=== PATIENT | male | born 1995 | race Caucasian/White ===

== ENCOUNTER 2016-11-15 17:47 | Emergency (ER) | payer OTHER ==
[~2016-11-15] VITALS: Ht 177.8 cm; Wt 99.8 kg
[2016-11-15 17:54] VITALS: BP 150/94
[2016-11-15] MEDS ORDERED: AMOXICILLIN500 M3 PO (18:44)
--- NOTE | 2016-11-15 18:46 | ED EAR COMPLAINT ---
History of Present Illness General Chief Complaint: Ear Complaints Stated Complaint: R EAR PAIN Source: patient Exam Limitations: no limitations Vital Signs & Intake/Output Vital Signs & Intake/Output Vital Signs Date Time Temp Pulse Resp B/P Pulse O2 O2 Flow FiO2 Ox Delivery Rate 11/15 1859 98.9 88 16 11/15 1754 97.1 86 16 150/94 97 Room Air ED Intake and Output 11/16 0000 11/15 1200 Intake Total Output Total Balance Patient 220 lb Weight Triage Note: PT C/O SEVER RIGHT EAR PAIN THAT STARTED ABOUT 1400 TODAY. PT STATES HE TRIED TO CLEAN OUT HIS EAR WITH PEROXIDE BUT NOTHING HELPED. Triage Nurses Notes Reviewed? yes HPI: This patient is a 21 year old male who presented for acute onset of right ear pain today. Reported that he was not doing anything inparticular when the pain started. No trauma. No drainage. Reported 7 out of 10, sharp, constant, pain with no palliative or provoking factors. No fevers, chills, headaches, sore throat,congestion or any other associated symptoms. (LANA PAGE PA-C) Allergies Coded Allergies: sulfamethoxazole (From [facility]) (RASH 11/15/16) trimethoprim (From [facility]) (RASH 11/15/16) Reconcile Medications Amoxicillin 500 MG TABLET 1 TAB PO TID otitis media (DOMONIQUE MURRIETA,HAKEEM) Past History Travel History Traveled to [place] past 21 day No Medical History Any Pertinent Medical History? see below for history Surgical History Surgical History: non-contributory Psychosocial History What is your primary language Salvadorean Tobacco Use: Never used ETOH Use: denies use Illicit Drug Use: denies illicit drug use Family History Hx Contributory? No (LANA PAGE PA-C) Review of Systems Review of Systems Constitutional: Reports: no symptoms. EENTM: Reports: see HPI. Respiratory: Reports: no symptoms. Cardiovascular: Reports: no symptoms. GI: Reports: no symptoms. Musculoskeletal: Reports: no symptoms. Skin: Reports: no symptoms. Neurological/Psychological: Reports: no symptoms. All Other Systems: Reviewed and Negative (LANA PAGE PA-C) Physical Exam Physical Exam Ears: Right: Tympanic red, Tympanic bulging. Bilateral: canal normal. Comments: Well-developed well-nourished person in no acute distress HEENT: Head normocephalic, moist mucous membranes, no pharyngeal injection Neck: Supple, no lymphadenopathy Back: Normal gait Respiratory: No respiratory distress. Speaking in full sentences Extremities: No edema, full range of motion Neuro: Alert and oriented x3 Psych: Mood affect normal, normal memory normal judgment. Skin: Warm and dry, no rash on exposed skin (LANA PAGE PA-C) Progress Differential Diagnoses I considered the following diagnoses in my evaluation of the patient: [otitis media, otitis externa, mastoiditis, tm perforation] Plan of Care: This patient is a 21-year-old male who presented for abrupt onset of right ear pain. On clinical examination, red, bulging tympanic membrane. No evidence of perforation. Likely otitis media. The patient has no other associated symptoms. Stable for outpatient antibiotic management of his symptoms. Initial ED EKG: none (LANA PAGE PA-C) Departure Departure Disposition: HOME OR SELF CARE Condition: Stable Clinical Impression Primary Impression: Otitis media Qualifiers: Otitis media type: unspecified Laterality: right Chronicity: unspecified Qualified Code: H66.91 - Otitis media, unspecified, right ear Referrals: EMILY COHEN DO (PCP/Family) Additional Instructions: Take antibiotic as directed and for the full duration. Follow-up with your primary care physician. Return for any worsening symptoms or concerns. Departure Forms: Customer Survey General Discharge Information Prescriptions: Current Visit Scripts Amoxicillin 1 TAB PO TID #30 TAB (LANA PAGE PA-C) PA/CORN DETASSELER MACHINE OPERATOR Co-Sign Statement Statement: ED Attending supervision documentation- [] I saw and evaluated the patient. I have also reviewed all the pertinent lab results and diagnostic results. I agree with the findings and the plan of care as documented in the PA's/CORN DETASSELER MACHINE OPERATOR's documentation. [X] I have reviewed the ED Record and agree with the PA's/CORN DETASSELER MACHINE OPERATOR's documentation. [] Additions or exceptions (if any) to the PAs/CORN DETASSELER MACHINE OPERATOR's note and plan are summarized below: [] (DOMONIQUE MURRIETA,HAKEEM)
== END 2016-11-15 19:07 ==
LOC: ERH 17:47
DX: H66.91 Otitis media, unspecified, right ear (principal)